=== PATIENT | female | born 1960 | race Caucasian/White ===

== ENCOUNTER → 2017-03-05 | Outpatient (CLI) | payer BC ==
--- NOTE | ~2017-03-05 | CR150 ---
[facility] A Service of [facility] & [facility] RADIOLOGY TEXT RESULTS PATIENT: IVELISSE LAWRENCE LOCATION: [facility] : 62 UNIT #: [id number] AGE: [address]: KANIKA PACE MD SEX: F ORDER DR: [id number] [facility] [address] [place], [place] [address] [id number] O MR#: [id number] Acc #: [id number] NAME: IVELISSE LAWRENCE : 1960 SEX: F STUDY DATE/TIME: 03/05/2017 12:39 UNIT: [facility] ROOM: STUDY DESCRIPTION: CR Hip Min 2 Views Lt Attending Physician: Kanika Pace M.D. Referring Physician: Kanika Pace M.D. Primary Care Physician: Valentin Henry M.D. MEDICAL IMAGING REPORT This report is preliminary unless electronic signature is present EXAM Left hip 03/05/2017 1239 hours HISTORY Low back pain with left hip pain for 1 year. No known injury. COMPARISON CT pelvis 08/20/2011 FINDINGS AP pelvis and frog lateral view left hip demonstrate normal joint space. No spurring, fracture or presence of avascular necrosis. The pelvis and sacroiliac joints appear normal. Bowel suture lines are present in the left lower quadrant. IMPRESSION Negative pelvis and left hip. Dictated by... Meme Barajas M.D. THIS IS AN ELECTRONICALLY VERIFIED REPORT Meme Barajas M.D. at 03/05/2017 8:03 PM HENRY/anahir TD: 03/05/2017 15:17 JOB #: [id number] MEDICAL IMAGING REPORT Page 1 of 1 COPY
--- NOTE | ~2017-03-05 | CR184 ---
[facility] A Service of [facility] RADIOLOGY TEXT RESULTS PATIENT: IVELISSE LAWRENCE LOCATION: [facility] : 62 UNIT #: [id number] AGE: [address]: KANIKA PACE MD SEX: F ORDER DR: [id number] [address] [id number] [place], [place] [address] [id number] O MR#: [id number] Acc #: [id number] NAME: IVELISSE LAWRENCE : 1960 SEX: F STUDY DATE/TIME: 03/05/2017 12:39 UNIT: [facility] ROOM: STUDY DESCRIPTION: CR Lumbar Spine Min 4 Views Attending Physician: Kanika Pace M.D. Referring Physician: Kanika Pace M.D. Ordering Physician: Adair Spivey M.D. Primary Care Physician: Valentin Henry M.D. MEDICAL IMAGING REPORT This report is preliminary unless electronic signature is present EXAM Lumbar spine series 03/05/2017 1239 hours HISTORY Low back pain with left hip pain for 1 year. COMPARISON MRI lumbar spine 07/31/2013 FINDINGS AP, lateral, bilateral oblique views and a coned lateral view of the lumbosacral junction were performed. There are 5 non-ribbearing lumbar type vertebrae which are normally aligned. Vertebral body and disc heights appear normal. The oblique views demonstrate normal facet joints. Bowel suture lines are noted in several locations within the bowel. IMPRESSION Negative lumbar spine series. Dictated by... Meme Barajas M.D. THIS IS AN ELECTRONICALLY VERIFIED REPORT Meme Barajas M.D. at 03/05/2017 8:03 PM HENRY/rodolfo TD: 03/05/2017 15:40 JOB #: [id number] [facility] A Service [facility] RADIOLOGY TEXT RESULTS PATIENT: IVELISSE LAWRENCE LOCATION: [facility] : 62 UNIT #: [id number] AGE: [address]: KANIKA PACE MD SEX: F ORDER DR: MEDICAL IMAGING REPORT Page 1 of 1 COPY
== END | disposition home or self-care (01) ==
LOC: CRAD 12:04
DX: G62.9 Polyneuropathy, unspecified (principal)
CPT/HCPCS: 72110; 73502